=== PATIENT | female | born 1995 | race Two or more races ===

== ENCOUNTER 2022-09-08 02:21 | Outpatient (CLI) | payer OTHER ==
[2022-09-08] MEDS ORDERED: PUREVIT DUALFE1 EACH PO (02:38)
== END 2022-09-08 08:06 | disposition home or self-care (01) ==
LOC: OBS/DEL 02:21
PROVIDERS: ATTEND Obstetrics & Gynecology
DX: O26.892 Other specified pregnancy related conditions, second trimester (principal); Z3A.24 24 weeks gestation of pregnancy; R10.2 Pelvic and perineal pain; Z91.011 Allergy to milk products

== ENCOUNTER 2022-12-07 12:32 | Outpatient (CLI) | payer OTHER ==
[~2022-12-07 12:32] MED LIST: PUREVIT DUALFE1 EACH PO
== END 2022-12-07 14:18 | disposition home or self-care (01) ==
LOC: NST 12:32
PROVIDERS: ATTEND Obstetrics & Gynecology Gynecology
DX: Z34.83 Encounter for supervision of other normal pregnancy, third trimester (principal)

== ENCOUNTER 2022-12-07 14:15 | Inpatient (IN) | payer OTHER ==
[~2022-12-07] VITALS: Ht 157.5 cm; Wt 2.3 kg
[2022-12-12] MEDS ORDERED: FOLIC A PO (13:11)
[2022-12-14] MEDS ORDERED: FOLIVANE-F CAP1 EACH (08:23)
[2022-12-14] MEDS ORDERED: FOLIC ACID0.8 M1 (08:23)
== END 2022-12-16 15:11 | disposition home or self-care (01) | DRG 788 ==
LOC: O/R 12-13 07:53 → OB/GYN 12-13 07:53
PROVIDERS: ADMIT Obstetrics & Gynecology Maternal & Fetal Medicine; ATTEND Obstetrics & Gynecology Maternal & Fetal Medicine
PROC: 0UB90ZZ Excision of Uterus, Open Approach (ICD-10-PCS; 2022-12-13)
PROC: 4A1HXCZ Monitoring of Products of Conception, Cardiac Rate, External Approach (ICD-10-PCS; 2022-12-13)
PROC: 10D00Z1 Extraction of Products of Conception, Low, Open Approach (ICD-10-PCS; principal; 2022-12-13 11:30)
DX: O32.1XX0 Maternal care for breech presentation, not applicable or unspecified (principal); O36.5930 Maternal care for other known or suspected poor fetal growth, third trimester, not applicable or unspecified; O34.13 Maternal care for benign tumor of corpus uteri, third trimester; D25.9 Leiomyoma of uterus, unspecified; Z3A.38 38 weeks gestation of pregnancy; Z37.0 Single live birth